=== PATIENT | female | born 1960 | race Caucasian/White ===

== ENCOUNTER 2018-10-18 07:03 | Inpatient (IN) | payer OTHER ==
[2018-10-06 09:19] LABS: HEMATOCRIT 42.7 % (37.0-47.0); HEMOGLOBIN 14.5 gm/dL (12.0-15.0); MCH 28.5 pg (26.0-34.0); MCHC 33.8 g/dL (28.0-37.0); MCV 84.1 fL (80.0-100.0); MPV 10.8 fl. (7.2-11.1); RBC 5.08 mil/uL (4.20-5.00); RDW-CV 14.5 % (10.5-14.5); WBC 7.3 thou/uL (4.0-11.0)
[2018-10-06 09:21] LABS: URINE BILIRUBIN NEGATIVE (Negative); URINE BLOOD NEGATIVE (Negative); URINE CLARITY CLEAR; URINE COLOR YELLOW; URINE GLUCOSE-RANDOM NEGATIVE (Negative); URINE KETONES NEGATIVE (Negative); URINE LEUKOCYTES-REFLEX NEGATIVE (Negative); URINE NITRITE-REFLEX NEGATIVE (Negative); URINE PROTEIN NEGATIVE (Negative); URINE SPECIFIC GRAVITY 1.025 (1.005-1.030); URINE UROBILINOGEN 0.2 E.U./dl (0.2-1.0)
[2018-10-06 09:35] LABS: ALBUMIN 3.4 g/dL (3.4-5.0); CALCIUM 9.1 mg/dL (8.5-10.1); CREATININE 0.8 mg/dL (0.6-1.3); POTASSIUM 3.7 mmol/L (3.5-5.1); TOTAL PROTEIN 7.6 g/dL (6.4-8.2)
--- NOTE | 2018-10-06 18:30 | EKG ---
[place] [address] ELECTROCARDIOGRAM REPORT Name: SEARSVICTOR MANUEL Room: PRE IN [facility].#: [id number] Admission: Attend Phys: Ann Lemus Discharge: Date of : 58 Report #: [id number] THIS REPORT FOR: //name// [facility] Test Date: 2018-10-06 Test Time: 09:31:05 Pat Name: VICTOR MANUEL SEARS Department: Room: Gender: F Professional Services Specialist: : 1960 Requested By: Piotr Brown Order Number: [id number] Reading MD: Farhad Duarte Measurements Intervals [place] Rate: 84 P: 50 CO: 130 QRS: 30 QRSD: 90 T: 52 QT: 371 QTc: 439 Interpretive Statements Sinus rhythm No previous ECG available for comparison Electronically Signed On 10-06-2018 18:30:31 BOTTOM LOADER by Farhad Duarte [email or web address] <ELECTRONICALLY SIGNED> By: Farhad Duarte MD, [facility] 10/06/18 1830 0931 0931 Farhad Duarte MD, FACC /EPI
[~2018-10-18] VITALS: Ht 162.6 cm; Wt 104.3 kg
--- NOTE | ~2018-10-18 | OP ---
[facility] [address] [place] [address] OPERATIVE REPORT Name: VICTOR MANUEL SEARS Room: [address] M.R.#: [id number] Admission: 10/18/18 Attend Phys: Ann Lemus Discharge: 10/19/18 Date of : 58 Report #: [id number] THIS REPORT FOR: //name// CC: Matt Allen DATE OF SERVICE: 10/18/2018 PREOPERATIVE DIAGNOSIS: Left knee osteoarthritis. POSTOPERATIVE DIAGNOSIS: Left knee osteoarthritis. PROCEDURE: Left total knee arthroplasty with Navio. SURGEON: Piotr Brown II, DO. SALES PROJECT ENGINEER: TONY John. ANESTHESIA: General endotracheal. ESTIMATED BLOOD LOSS: 50 mL. ANTIBIOTICS: Ancef preoperatively. DRAINS: Medium Hemovac. COMPLICATIONS: None. CONDITION: The patient is stable to recovery room. IMPLANTS: Listed in the operative record and progress note. BRIEF HISTORY: The patient was seen in the preoperative area. Preoperative H and P was performed. Site was marked, questions were answered. Risks and benefits were discussed with the patient in detail about surgery. The patient wished to proceed assuming all risks. DESCRIPTION OF PROCEDURE: The patient was taken to the operative suite and placed supine on the operative table and given appropriate anesthesia. The patient's operative thigh was well padded. Tourniquet was applied, which was inflated to 300 mmHg after gravity exsanguination. The operative knee was sterilely prepped and draped. Surgery begun by midline incision. This was carried down to subcutaneous tissues. A medial parapatellar arthrotomy was performed and carried down to bone. The patella was then everted and excess osteophytes and soft tissue removed from around the femur and tibia. The [place] [id number] OPERATIVE REPORT Name: SEARSIKEA Room: [address] .R.#: [id number] Admission: 10/18/18 Attend Phys: Ann Lemus Discharge: 10/19/18 Date of : 58 Report #: [id number] tracker pins were then placed up in the femur and the tibia in appropriate fashion. Tracker guides were then placed for the Anchor™ robotic assistive device. The knee was then registered through the Anchor™ software and the robot handpiece was activated. Utilizing this, the appropriate cuts were made in the bone to align the cutting block for the femur. After these were made, the femur block was then applied, checked with the robotic assistance for appropriate alignment and appropriate cut was made. The 4-in-1 cutting block was then applied and checked for appropriate alignment with robotic assistance and appropriate cut was made. This excess bone was removed along the femur. A retractor was placed on the tibia. Excess meniscus was removed. Retractors were also placed in the posterior aspect of the tibia utilizing robotic assistance. Tibial pin sites were placed. The cutting block was applied, checked with the appropriate alignment tool with robotic assistance and appropriate cut was made. Tibial bone was removed. The tibial baseplate was then applied, checked for rotational alignment with the drop [place] and pinned in appropriate position. The femur was then applied and box cut was reamed. This was then trialed with the appropriate spacer, which showed excellent fit and fill and excellent stability of the knee through all range of motion. The patella was reamed in appropriate fashion and sized to appropriate size. Three peg holes were drilled and was then trialed and showed excellent flexion, extension, excellent tracking of the patella within the groove as well as excellent tracking of the robotic-assisted device. These trials were removed. The tibia was punched in appropriate fashion. Bone ends were cleansed with Pulsavac irrigation and cement was mixed and applied to the final implants. These were malleted in the position, held the knee in extension and compressed to allow cement to cure. After it cured, excess was removed using a [place] and osteotome. It was then copiously irrigated and the final spacer was then malleted in position. Tourniquet was deflated. Hemostasis was obtained with electrocautery. The pain cocktail was injected. PRP gel was sprayed through internal aspects of the knee. The knee tracking devices were then removed from the bone. Portal sites were closed with a 3-0 nylon in simple fashion. Medium Hemovac drain was applied. Capsule was closed with 2 FiberWire and 1 Vicryl in [id number] fashion. Skin was closed with 2-0 Vicryl and running 3-0 Monocryl. Dermabond and sterile dressing applied. Parth wrap and PolarCare applied. The patient was transported to recovery room in stable condition. Counts correct throughout the procedure. By: [id number] Brown II, DO /nt
[~2018-10-18 07:03] MED LIST: NAPROSYN500 M1 PO; PERCOCET PO; SYNTHROID75 MCG PO
[2018-10-18 08:10] VITALS: BP 128/77
[2018-10-18 12:18] VITALS: BP 125/56
[2018-10-18 20:00] VITALS: BP 144/69
[2018-10-19] VITALS: BP 105/51
[2018-10-19 04:00] VITALS: BP 114/63
[2018-10-19 04:28] LABS: HEMATOCRIT 36.2 % (37.0-47.0)
[2018-10-19 08:00] VITALS: BP 123/71
[2018-10-19 12:01] VITALS: BP 123/71
[2018-10-19] MEDS ORDERED: OXYCODONE HCL 55 MG PO (12:22)
[2018-10-19 13:32] VITALS: BP 123/71
[2018-10-19] MEDS ORDERED: TYLENOL325 MG PO (13:37)
[2018-10-19] MEDS ORDERED: XARELTO10 MG PO (13:38)
[2018-10-20] MEDS ORDERED: ROXICODONE5 M2 (02:59)
[2018-10-20] MEDS ORDERED: PERCOCET PO (02:59)
== END 2018-10-19 14:00 | disposition home health service (06) | DRG 470 ==
LOC: M.SUR 07:03 → M.PRE 08:49 → M.TBA 10:59 → M.ORTHSURG 10:59 → M.PRE 11:01 → M.ORTHSURG 12:04 → M.PRE 14:34 → EDSTATUS 17:09 → M.SUR 17:24 → M.ORTHSURG 10-19 14:00
PROVIDERS: Orthopaedic Surgery; ADMIT Internal Medicine
PROC: 0SRD0J9 Replacement of Left Knee Joint with Synthetic Substitute, Cemented, Open Approach (ICD-10-PCS; principal; 2018-10-18)
PROC: 8E0Y0CZ Robotic Assisted Procedure of Lower Extremity, Open Approach (ICD-10-PCS; 2018-10-18)
DX: M17.12 Unilateral primary osteoarthritis, left knee (principal); E03.9 Hypothyroidism, unspecified; Z90.49 Acquired absence of other specified parts of digestive tract; Z98.42 Cataract extraction status, left eye; Z98.41 Cataract extraction status, right eye; Z83.3 Family history of diabetes mellitus; Z28.21 Immunization not carried out because of patient refusal; Z79.899 Other long term (current) drug therapy

== ENCOUNTER 2018-10-20 02:48 | Inpatient (IN) | payer OTHER ==
[~2018-10-20] VITALS: Ht 160 cm; Wt 104.3 kg
[~2018-10-20 02:48] MED LIST changes: +OXYCODONE HCL 55 MG PO; +TYLENOL325 MG PO; +XARELTO10 MG PO
[2018-10-20 02:52] VITALS: BP 143/57
[2018-10-20] MEDS ORDERED: ROXICODONE5 M2 (02:59)
[2018-10-20] MEDS ORDERED: PERCOCET PO (02:59)
[2018-10-20 04:00] LABS: HEMATOCRIT 36.3 % (37.0-47.0); HEMOGLOBIN 11.9 gm/dL (12.0-15.0); MCH 27.6 pg (26.0-34.0); MCHC 32.9 g/dL (28.0-37.0); MCV 83.7 fL (80.0-100.0); MPV 10.3 fl. (7.2-11.1); RBC 4.34 mil/uL (4.20-5.00); RDW-CV 15.5 % (10.5-14.5); WBC 12.1 thou/uL (4.0-11.0)
[2018-10-20 04:16] LABS: ALBUMIN 3.2 g/dL (3.4-5.0); CALCIUM 8.6 mg/dL (8.5-10.1); CREATININE 0.9 mg/dL (0.6-1.3); POTASSIUM 4.2 mmol/L (3.5-5.1); TOTAL BILIRUBIN 0.7 mg/dL (<0.1-1.0); TOTAL PROTEIN 7.2 g/dL (6.4-8.2)
[2018-10-20 07:42] VITALS: BP 133/67
[2018-10-20 08:00] VITALS: BP 141/65
[2018-10-20 11:30] VITALS: BP 142/62
[2018-10-20 16:43] VITALS: BP 112/55
[2018-10-20 20:00] VITALS: BP 112/51
[2018-10-21 08:00] VITALS: BP 126/59
[2018-10-21 15:59] VITALS: BP 139/74
[2018-10-22 09:00] VITALS: BP 114/50
[2018-10-22 16:00] VITALS: BP 148/69
[2018-10-22 18:21] VITALS: BP 148/69
[2018-10-22 18:25] VITALS: BP 148/69
[2018-10-22] MEDS ORDERED: OXYCONTIN10 M1 PO (18:26)
[2018-10-22] MEDS ORDERED: KEFLEX500 M1 PO (18:28)
== END 2018-10-22 18:45 | disposition home or self-care (01) | DRG 948 ==
LOC: M.ERS 02:48 → M.ORTHSURG 04:36 → M.TBA-ER 04:36 → M.ORTHSURG 06:57
PROVIDERS: Personal Emergency Response Attendant; ADMIT Internal Medicine
DX: G89.18 Other acute postprocedural pain (principal); R65.10 Systemic inflammatory response syndrome (SIRS) of non-infectious origin without acute organ dysfunction; Z68.41 Body mass index [BMI] 40.0-44.9, adult; E66.01 Morbid (severe) obesity due to excess calories; E03.9 Hypothyroidism, unspecified; Z96.652 Presence of left artificial knee joint; Z90.49 Acquired absence of other specified parts of digestive tract; Z90.710 Acquired absence of both cervix and uterus; Z98.42 Cataract extraction status, left eye; Z98.41 Cataract extraction status, right eye; Z79.01 Long term (current) use of anticoagulants; Z79.899 Other long term (current) drug therapy; Z83.3 Family history of diabetes mellitus